=== PATIENT | female | born 1985 | race Caucasian/White ===

== ENCOUNTER → 2017-02-02 | Outpatient (REF) | LOC: WSOH 10:52 → WSPT 12:30 | DX: Z02.89 Encounter for other administrative examinations (principal) ==

== ENCOUNTER → 2017-02-05 | Outpatient (REF) | LOC: WSOH 11:42 | DX: Z02.89 Encounter for other administrative examinations (principal) ==

== ENCOUNTER → 2017-02-26 | Outpatient (REF) | LOC: WSOH 17:45 | DX: Z02.89 Encounter for other administrative examinations (principal) ==

== ENCOUNTER → 2017-03-05 | Outpatient (REF) | LOC: WSOH 15:41 | DX: Z02.89 Encounter for other administrative examinations (principal) ==

== ENCOUNTER → 2018-01-20 | Outpatient (REF) | LOC: ZLAB.WCH 17:34 | DX: Z01.89 Encounter for other specified special examinations (principal) ==

== ENCOUNTER 2018-09-27 09:17 | Emergency (ER) | payer OTHER ==
[~2018-09-27] VITALS: Ht 165.1 cm; Wt 96.9 kg
[2018-09-27 09:23] VITALS: TEMP 98
[2018-09-27] MEDS ORDERED: CEPHALEXIN500 M1 PO (15:26)
[2018-09-27 15:51] VITALS: BP 126/74; PULSE 77
== END 2018-09-27 16:09 | disposition home or self-care (01) ==
LOC: COL.ER 09:17
DX: S62.604B Fracture of unspecified phalanx of right ring finger, initial encounter for open fracture (principal); S67.192A Crushing injury of right middle finger, initial encounter; W23.0XXA Caught, crushed, jammed, or pinched between moving objects, initial encounter; Y92.59 Other trade areas as the place of occurrence of the external cause